=== PATIENT | male | born 1990 | race Caucasian/White ===

== ENCOUNTER 2020-02-23 13:37 | Emergency (ER) | payer SELFPAY ==
[~2020-02-23] VITALS: Ht 182.9 cm; Wt 97.0 kg
[2020-02-23 13:40] VITALS: BP 122/80
[2020-02-23] MEDS ORDERED: ONDANSETRON ODT 4 MG TAB.RAPDIS PO ONE (14:30)
--- NOTE | 2020-02-23 14:41 | PHYS DOC ---
Past History Past Medical History: No Pertinent History (GIDEON BROWN APRN) Past Surgical History: Other Additional Past Surgical Histo: left arm surgery (GIDEON BROWN APRN) Alcohol Use: None (GIDEON BROWN APRN) General Adult EDM: Chief Complaint: NAUSEA/VOMITING/DIARRHEA HPI: HPI: Patient is a 29-year-old male who presents with dizziness, fatigue, decrease in appetite,nausea, vomiting and diarrhea. Patient reports coughing up a small amount of blood last night. Patient states that yesterday he was scrapping an old oil container. When he went to the scraper, they tested the oil container, and it tested positive for radiation. Radiation levels unknown. Patients symptoms started not long after leaving the scraper. Patient reports going to [employer] yesterday to be seen but left because it was taking too long. (GIDEON BROWN APRN) Review of Systems: Review of Systems: Constitutional: Reports fever and chills Eyes: Denies change in visual acuity HENT: Denies nasal congestion or sore throat, reports headache Respiratory: Denies shortness of breath, reports scant blood with cough last night Cardiovascular: Denies chest pain or edema GI: Denies abdominal pain, bloody stools. Reports n/v/d : Denies dysuria Musculoskeletal: Denies back pain or joint pain Integument: Denies rash Neurologic: Denies focal weakness or sensory changes, reports headache Endocrine: Denies polyuria or polydipsia Lymphatic: Denies swollen glands Psychiatric: Denies depression or anxiety (GIDEON BROWN APRN) Current Medications: Current Meds: Current Medications Medications (Trade) Dose Ordered Sig/[facility] Start Time Stop Time Status Last Admin Dose Admin Ondansetron HCl (Zofran Odt) 4 mg 1X ONCE 02/23/20 14:30 02/23/20 14:31 (GIDEON BROWN APRN) Allergies: Allergies: Allergies Coded Allergies Type Severity Reaction Last Updated Verified No Known Drug Allergies 02/23/20 No (GIDEON BROWN APRN) Physical Exam: PE: Constitutional: Well developed, well nourished, no acute distress, non-toxic appearance. [] HENT: Normocephalic, atraumatic, bilateral external ears normal, oropharynx moist, no oral exudates, nose normal. [] Eyes: PERRLA, EOMI, conjunctiva normal, no discharge. [] Neck: Normal range of motion, no tenderness, supple, no stridor. [] Cardiovascular:Heart rate regular rhythm, no murmur [] Lungs & Thorax: Bilateral breath sounds clear to auscultation [] Abdomen: Bowel sounds normal, soft, no tenderness, no masses, no pulsatile masses. [] Skin: Warm, dry, no erythema, no rash. [] Back: No tenderness, no CVA tenderness. [] Extremities: No tenderness, no cyanosis, no clubbing, ROM intact, no edema. [] Neurologic: Alert and oriented X 3, normal motor function, normal sensory function, no focal deficits noted. [] Psychologic: Affect normal, judgement normal, mood normal. [] (GIDEON BROWN APRN) Current Patient Data: Vital Signs: Vital Signs Date Time Temp Pulse Resp B/P (MAP) Pulse Ox O2 Delivery O2 Flow Rate FiO2 02/23/20 13:40 98.4 110 18 122/80 (94) 96 Room Air (GIDEON BROWN APRN) Radiology/Procedures: Radiology/Procedures: []EXAM: Chest, single view. HISTORY: Cough. COMPARISON: None. FINDINGS: A frontal view of the chest is obtained. There is no infiltrate, pleural effusion or pneumothorax. The heart is normal in size. IMPRESSION: No acute pulmonary finding. Electronically signed by: Selina Danielle MD (02/23/2020 2:59 PM) [facility] (GIDEON BROWN APRN) Heart Score: Risk Factors: Risk Factors: DM, Current or recent (<one month) smoker, HTN, HLP, family history of CAD, obesity. Risk Scores: Score 0 - 3: 2.5% MACE over next 6 weeks - Discharge Home Score 4 - 6: 20.3% MACE over next 6 weeks - Admit for Clinical Observation Score 7 - 10: 72.7% MACE over next 6 weeks - Early Invasive Strategies (GIDEON BROWN APRN) Course & Med Decision Making: Course & Med Decision Making Pertinent Labs and Imaging studies reviewed. (See chart for details) (GIDEON BROWN APRN) Dragon Disclaimer: Dragon Disclaimer: This electronic medical record was generated, in whole or in part, using a voice recognition dictation system. (GIDEON BROWN APRN) Departure Departure: Impression: Primary Impression: Nausea Additional Impression: Dizziness Disposition: 01 DC HOME SELF CARE/HOMELESS Condition: STABLE Referrals: PCP,NO (PCP) Patient Instructions: Nausea, Adult, [id number] Additional Instructions: Take Ibuprofen and Tylenol as needed for pain. Increase fluids. Attending Co-Sign Attending Co-Sign I have reviewed the non-physician practitioner's documentation, personally taken the patient's history, performed an exam and agree with the physical findings, clinical impression, and management plan. In brief patient is a 29-year-old male who presents with a chief complaint of nausea, dizziness, lightheadedness. 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 He is concerned he may have experienced a radiation exposure as he states some of the scrap metal with a took to a scrap metal yard was positive for radiation. He is unsure of what level. He states he did have nausea and vomiting several hours after his exposure yesterday afternoon. He reports only nausea at this time. Vital signs unremarkable. Physical exam unremarkable. Basic labs were obtained. Slight leukocytosis of 14.2. Absolute neutrophil count of 11.7. Remainder of labs unremarkable. We did use Patricia counter at our facility which did not read any elevated levels of radiation. We did discuss case with poison center specifical ly Dr. Redd. They did recommend repeat CBC with differential approximately 6 to 8 hours after initial laboratory analysis. Patient did request to be discharged home and states he will return for repeat laboratory analysis. We did encourage him to stay in the emergency department however he would like to go home and come back for repeat testing. Given the patient does not have any Patricia counter reading he is likely not an exposure threat to other individuals. We did confirm this with poison center who states it was okay for him to go home and return. Strict return precautions were discussed. He was explicitly told to return at 9 PM this evening for repeat testing. Remained hemodynamically stable. (CAMILLE BRITO DO) GIDEON BROWN APRN Feb 23, 2020 14:41 CAMILLE BRITO DO Feb 23, 2020 16:50
--- NOTE | 2020-02-23 15:02 | RAD ---
EXAM: Chest, single view. HISTORY: Cough. COMPARISON: None. FINDINGS: A frontal view of the chest is obtained. There is no infiltrate, pleural effusion or pneumo thorax. The heart is normal in size. IMPRESSION: No acute pulmonary finding. Electronically signed by: Selina Danielle MD (02/23/2020 2:59 PM) [facility]
[2020-02-23 15:09] LABS: BASO # 0.1 x10^3/uL (0.0-0.2); BASO % 0 % (0-3); EOS # 0.1 x10^3/uL (0.0-0.7); EOS % 0 % (0-3); HEMATOCRIT 45.8 % (39.0-53.0); HEMOGLOBIN 14.9 g/dL (13.0-17.5); LYMPH # 1.3 x10^3/uL (1.0-4.8); LYMPH % 9 % (24-48); MEAN CORPUSCULAR HEMOGLOBIN 28 pg (25-35); MEAN CORPUSCULAR HGB CONC 33 g/dL (31-37); MEAN CORPUSCULAR VOLUME 86 fL (79-100); MONO # 1.1 x10^3/uL (0.0-1.1); MONO % 8 % (0-9); NEUT # 11.7 x10^3uL (1.8-7.7); NEUT % 82 % (31-73); PLATELET COUNT 193 x10^3/uL (140-400); RED BLOOD COUNT 5.31 x10^6/uL (4.30-5.70); RED CELL DISTRIBUTION WIDTH 12.5 % (11.5-14.5); WHITE BLOOD COUNT 14.2 x10^3/uL (4.0-11.0)
[2020-02-23 15:12] LABS: CALCIUM 8.6 mg/dL (8.5-10.1); CREATININE 1.1 mg/dL (0.7-1.3); GFR 80.3; POTASSIUM 3.5 mmol/L (3.5-5.1)
[2020-02-23 15:20] LABS: ALBUMIN 3.7 g/dL (3.4-5.0); ALBUMIN/GLOBULIN RATIO 0.9 (1.0-1.7); TOTAL BILIRUBIN 0.7 mg/dL (0.2-1.0); TOTAL PROTEIN 7.7 g/dL (6.4-8.2)
[2020-02-23 16:41] LABS: % LYMPHS 9 % (24-48); % MONOS 4 % (0-10); % SEGS 87 % (35-66); PLT ESTIMATE ADEQUATE (ADEQUATE)
--- NOTE | 2020-02-27 11:27 | NUR ---
IP:patient notified of COVID result.
== END 2020-02-23 16:55 | disposition home or self-care (01) ==
LOC: ER 13:37
DX: R11.2 Nausea with vomiting, unspecified (principal); R42 Dizziness and giddiness; R53.83 Other fatigue; R19.7 Diarrhea, unspecified; Z20.828 Contact with and (suspected) exposure to other viral communicable diseases
CPT/HCPCS: 36415; 71045; 80053; 82150; 83735; 85007; 85025; 99284; C9803; Q0162; U0003

== ENCOUNTER 2021-01-10 00:51 | Emergency (ER) | payer SELFPAY ==
[~2021-01-10] VITALS: Ht 185.4 cm; Wt 104.0 kg
[2021-01-10] MEDS ORDERED: ONDANSETRON PF 4 MG/2 ML VIAL. IVP ONE (01:30)
[2021-01-10] MEDS ORDERED: KETOROLAC 15 MG/ML VIAL. IVP ONE (01:30)
[2021-01-10] MEDS ORDERED: IV NORMAL SALINE 1,000ML 1,000 ML IV ONE (01:30)
[2021-01-10] MEDS ORDERED: FAMOTIDINE 20 MG/2 ML VIAL IVP ONE (01:30)
[2021-01-10 02:29] LABS: BASO # 0.1 x10^3/uL (0.0-0.2); BASO % 1 % (0-3); EOS # 0.2 x10^3/uL (0.0-0.7); EOS % 2 % (0-3); HEMATOCRIT 44.2 % (39.0-53.0); HEMOGLOBIN 14.4 g/dL (13.0-17.5); LYMPH # 2.6 x10^3/uL (1.0-4.8); LYMPH % 28 % (24-48); MEAN CORPUSCULAR HEMOGLOBIN 28 pg (25-35); MEAN CORPUSCULAR HGB CONC 33 g/dL (31-37); MEAN CORPUSCULAR VOLUME 86 fL (79-100); MONO # 0.9 x10^3/uL (0.0-1.1); MONO % 10 % (0-9); NEUT # 5.6 x10^3uL (1.8-7.7); NEUT % 59 % (31-73); PLATELET COUNT 260 x10^3/uL (140-400); RED BLOOD COUNT 5.13 x10^6/uL (4.30-5.70); RED CELL DISTRIBUTION WIDTH 12.8 % (11.5-14.5); WHITE BLOOD COUNT 9.4 x10^3/uL (4.0-11.0)
[2021-01-10 02:38] LABS: CALCIUM 8.9 mg/dL (8.5-10.1); CREATININE 0.8 mg/dL (0.7-1.3); GFR 115.1; POTASSIUM 3.5 mmol/L (3.5-5.1)
[2021-01-10 02:39] LABS: BACTERIA,URINE 0 /HPF (0-FEW); BILIRUBIN,URINE NEG (NEG); CLARITY,URINE CLEAR; COLOR,URINE YELLOW; GLUCOSE,URINE NEG (NEG); NITRITE,URINE NEG (NEG); RBC,URINE 0 /HPF (0-2); WBC,URINE RARE /HPF (0-4)
[2021-01-10 02:40] LABS: AMORPHOUS SEDIMENT,UR PRESENT /HPF
[2021-01-10 02:44] LABS: ALBUMIN 3.4 g/dL (3.4-5.0); ALBUMIN/GLOBULIN RATIO 0.9 (1.0-1.7); MAGNESIUM 2.2 mg/dL (1.8-2.4); TOTAL BILIRUBIN 0.2 mg/dL (0.2-1.0); TOTAL PROTEIN 7.3 g/dL (6.4-8.2)
[2021-01-10 03:30] VITALS: BP 123/66
[2021-01-10] MEDS ORDERED: HYOS0.1265 SL (03:49)
[2021-01-10] MEDS ORDERED: FAMO-63 PO (03:49)
[2021-01-10] MEDS ORDERED: ONDA4TAB12 PO (03:49)
--- NOTE | 2021-01-10 03:49 | PHYS DOC ---
Past History Past Medical History: No Pertinent History Past Surgical History: Other Additional Past Surgical Histo: rt arm Alcohol Use: Occasionally General Adult EDM: Chief Complaint: ABDOMINAL PAIN HPI: HPI: Patient is a [age] year old [sex] who presents with [] Review of Systems: Review of Systems: Constitutional: Denies fever or chills Eyes: Denies change in visual acuity HENT: Denies nasal congestion or sore throat Respiratory: Denies cough or shortness of breath Cardiovascular: Denies chest pain or edema GI: Denies abdominal pain, nausea, vomiting, bloody stools or diarrhea : Denies dysuria Musculoskeletal: Denies back pain or joint pain Integument: Denies rash Neurologic: Denies headache, focal weakness or sensory changes Endocrine: Denies polyuria or polydipsia Lymphatic: Denies swollen glands Psychiatric: Denies depression or anxiety Current Medications: Current Meds: Current Medications Medications (Trade) Dose Ordered Sig/[facility] Start Time Stop Time Status Last Admin Dose Admin Famotidine (Pepcid Vial) 20 mg 1X ONCE 01/10/21 01:30 01/10/21 01:31 DC 01/10/21 01:53 20 MG Ketorolac Tromethamine (Toradol 15mg Vial) 15 mg 1X ONCE 01/10/21 01:30 01/10/21 01:31 DC 01/10/21 01:54 15 MG Ondansetron HCl (Zofran) 4 mg 1X ONCE 01/10/21 01:30 01/10/21 01:31 DC 01/10/21 01:53 4 MG Sodium Chloride 1,000 ml @ 1,000 mls/hr 1X ONCE 01/10/21 01:30 01/10/21 02:29 DC 01/10/21 01:53 1,000 MLS/HR Allergies: Allergies: Allergies Coded Allergies Type Severity Reaction Last Updated Verified No Known Drug Allergies 02/23/20 No Physical Exam: PE: Constitutional: Well developed, well nourished, no acute distress, non-toxic appearance. [] HENT: Normocephalic, atraumatic, bilateral external ears normal, oropharynx moist, no oral exudates, nose normal. [] Eyes: PERRLA, EOMI, conjunctiva normal, no discharge. [] Neck: Normal range of motion, no tenderness, supple, no stridor. [] Cardiovascular:Heart rate regular rhythm, no murmur [] Lungs & Thorax: Bilateral breath sounds clear to auscultation [] Abdomen: Bowel sounds normal, soft, no tenderness, no masses, no pulsatile masses. [] Skin: Warm, dry, no erythema, no rash. [] Back: No tenderness, no CVA tenderness. [] Extremities: No tenderness, no cyanosis, no clubbing, ROM intact, no edema. [] Neurologic: Alert and oriented X 3, normal motor function, normal sensory function, no focal deficits noted. [] Psychologic: Affect normal, judgement normal, mood normal. [] Current Patient Data: Labs: Laboratory Tests Test 01/10/21 01:30 01/10/21 01:45 Urine Collection Type Unknown Urine Color Yellow Urine Clarity Clear Urine pH 7.0 Urine Specific Badger 1.020 Urine Protein Neg (NEG-TRACE) Urine Glucose (UA) Neg mg/dL (NEG) Urine Ketones (Stick) Neg mg/dL (NEG) Urine Blood Neg (NEG) Urine Nitrite Neg (NEG) Urine Bilirubin Neg (NEG) Urine Urobilinogen Dipstick 2.0 mg/dL (0.2 mg/dL) Urine Leukocyte Esterase Neg (NEG) Urine RBC 0 /HPF (0-2) Urine WBC Rare /HPF (0-4) Urine Squamous Epithelial Cells None /LPF Urine Amorphous Sediment Present /HPF Urine Bacteria 0 /HPF (0-FEW) White Blood Count 9.4 x10^3/uL (4.0-11.0) Red Blood Count 5.13 x10^6/uL (4.30-5.70) Hemoglobin 14.4 g/dL (13.0-17.5) Hematocrit 44.2 % (39.0-53.0) Mean Corpuscular Volume 86 fL (79-100) Mean Corpuscular Hemoglobin 28 pg (25-35) Mean Corpuscular Hemoglobin Concent 33 g/dL (31-37) Red Cell Distribution Width 12.8 % (11.5-14.5) Platelet Count 260 x10^3/uL (140-400) Neutrophils (%) (Auto) 59 % (31-73) Lymphocytes (%) (Auto) 28 % (24-48) Monocytes (%) (Auto) 10 % (0-9) H Eosinophils (%) (Auto) 2 % (0-3) Basophils (%) (Auto) 1 % (0-3) Neutrophils # (Auto) 5.6 x10^3uL (1.8-7.7) Lymphocytes # (Auto) 2.6 x10^3/uL (1.0-4.8) Monocytes # (Auto) 0.9 x10^3/uL (0.0-1.1) Eosinophils # (Auto) 0.2 x10^3/uL (0.0-0.7) Basophils # (Auto) 0.1 x10^3/uL (0.0-0.2) Sodium Level 138 mmol/L (136-145) Potassium Level 3.5 mmol/L (3.5-5.1) Chloride Level 102 mmol/L (98-107) Carbon Dioxide Level 30 mmol/L (21-32) Anion Gap 6 (6-14) Blood Urea Nitrogen 10 mg/dL (8-26) Creatinine 0.8 mg/dL (0.7-1.3) Estimated GFR (Cockcroft-Gault) 115.1 BUN/Creatinine Ratio 13 (6-20) Glucose Level 84 mg/dL (70-99) Calcium Level 8.9 mg/dL (8.5-10.1) Magnesium Level 2.2 mg/dL (1.8-2.4) Total Bilirubin 0.2 mg/dL (0.2-1.0) Aspartate Amino Transferase (AST) 17 U/L (15-37) Alanine Aminotransferase (ALT) 27 U/L (16-63) Alkaline Phosphatase 61 U/L (46-116) Total Protein 7.3 g/dL (6.4-8.2) Albumin 3.4 g/dL (3.4-5.0) Albumin/Globulin Ratio 0.9 (1.0-1.7) L Lipase 51 U/L (73-393) L Vital Signs: Vital Signs Date Time Temp Pulse Resp B/P (MAP) Pulse Ox O2 Delivery O2 Flow Rate FiO2 01/10/21 00:56 98.4 87 18 126/78 (94) 99 Room Air EKG: EKG: [] Radiology/Procedures: Radiology/Procedures: [] Heart Score: Risk Factors: Risk Factors: DM, Current or recent (<one month) smoker, HTN, HLP, family history of CAD, obesity. Risk Scores: Score 0 - 3: 2.5% MACE over next 6 weeks - Discharge Home Score 4 - 6: 20.3% MACE over next 6 weeks - Admit for Clinical Observation Score 7 - 10: 72.7% MACE over next 6 weeks - Early Invasive Strategies Course & Med Decision Making: Course & Med Decision Making Pertinent Labs and Imaging studies reviewed. (See chart for details) [] Dragon Disclaimer: Dragon Disclaimer: This electronic medical record was generated, in whole or in part, using a voice recognition dictation system. Departure Departure: Impression: Primary Impression: Abdominal spasms Additional Impressions: Nausea Diarrhea Qualified Codes: R19.7 - Diarrhea, unspecified Disposition: HOME / SELF CARE / HOMELESS Condition: STABLE Referrals: PCPHELEN (PCP) MARGUERITE LOPEZ MD Patient Instructions: Abdominal Pain, [id number], Diet for Diarrhea, Adult, Viral Gastroenteritis, [id number] Additional Instructions: Increase fluid hydration. Scripts Hyoscyamine Sulfate (LEVSIN-SL) 0.125 Mg Tab.subl 0.125 MG SL Q4-6HRS PRN for PAIN, #20 TAB Prov: JESICA PUENTES DO 01/10/21 Famotidine (PEPCID) 20 Mg Tablet 1 TAB PO BID for Gastritis, #20 TAB Prov: JESICA PUENTES DO 01/10/21 Ondansetron (ONDANSETRON ODT) 4 Mg Tab.rapdis 1 TAB PO PRN Q6-8HRS PRN for NAUSEA, #16 TAB Prov: JESICA PUENTES DO 01/10/21 JESICA PUENTES DO Jan 10, 2021 03:49
[2021-01-10] MEDS ORDERED: DICYCLOMINE 20 MG/2 ML VIAL. IM ONE (04:15)
== END 2021-01-10 04:15 | disposition home or self-care (01) ==
LOC: ER 00:51
DX: M62.838 Other muscle spasm (principal); R10.9 Unspecified abdominal pain; R19.7 Diarrhea, unspecified; R11.0 Nausea
CPT/HCPCS: 36415; 80053; 81001; 83690; 83735; 85025; 96361; 96372; 96374; 96375; 99284; J0500; J1885; J2405; J3490; J7030